=== PATIENT | male | born 1975 | race African-American/Black ===

== ENCOUNTER 2021-07-31 18:39 | Inpatient (IN) | payer MEDICAID ==
[~2021-07-31] VITALS: Ht 180.3 cm; Wt 98.4 kg
[2021-07-31] MEDS ORDERED: ONDANSETRON HCL 4MG/2ML INJ IV STA (20:03)
[2021-07-31] MEDS ORDERED: CLONIDINE 0.2MG TABLET PO ONE (20:15)
[2021-07-31] MEDS ORDERED: SODIUM CHLORIDE 0.9% 1,000 ML IV ONE (20:15)
[2021-07-31 20:29] LABS: BASOPHILS % 0.6 % (0.0-2.0); EOSINOPHILS % 2.6 % (0.0-5.0); HEMATOCRIT. 35.3 % (42.0-52.0); HEMOGLOBIN. 12.1 g/dL (14.0-18.0); LYMPHOCYTES % 23.1 % (20.0-50.0); MEAN CORPUSCULAR HEMOGLOBIN 31.1 pg (28.0-32.0); MEAN CORPUSCULAR VOLUME 90.8 fL (80.0-94.0); MONOCYTES % 7.1 % (2.0-8.0); NEUTROPHILS % 66.6 % (40.0-76.0); PLATELET 160 x1000/uL (130-400); RED BLOOD CELL COUNT 3.89 mill/uL (4.7-6.1); RED CELL DISTRIBUTION WIDTH 13.1 % (11.6-14.6)
[2021-07-31 20:36] LABS: CHLORIDE 111 mEq/L (98-107)
[2021-07-31] MEDS ORDERED: NITROGLYCERIN 50MG PREMIX 250 ML IV ONE (21:15)
[2021-07-31 21:52] LABS: CLARITY URINE CLEAR (CLEAR); COLOR URINE YELLOW (YELLOW); KETONES URINE NEGATIVE (NEGATIVE); LEUKOCYTE ESTERASE URINE NEGATIVE (NEGATIVE); NITRITE URINE NEGATIVE (NEGATIVE); OCCULT BLOOD URINE 2+ (NEGATIVE); PH URINE 6.5 (4.5-8.0); PROTEIN URINE 3+ (NEGATIVE); UROBILINOGEN URINE 0.2 E.U./dL (0.2-1.0)
[2021-07-31] MEDS ORDERED: ONDANSETRON HCL 4MG/2ML INJ IV PRN (23:15)
[2021-07-31] MEDS ORDERED: ACETAMINOPHEN 325MG TABLET PO PRN ×2 (23:15)
[2021-08-01] MEDS ORDERED: NITROGLYCERIN 50 MG PREMIX 250 ML IV PRN (04:45)
[2021-08-01 05:08] LABS: CHLORIDE 112 mEq/L (98-107)
[2021-08-01 05:10] LABS: BASOPHILS % 0.4 % (0.0-2.0); EOSINOPHILS % 4.1 % (0.0-5.0); HEMATOCRIT. 30.2 % (42.0-52.0); HEMOGLOBIN. 10.3 g/dL (14.0-18.0); LYMPHOCYTES % 31.6 % (20.0-50.0); MEAN CORPUSCULAR HEMOGLOBIN 30.5 pg (28.0-32.0); MEAN CORPUSCULAR VOLUME 89.4 fL (80.0-94.0); MEAN PLATELET VOLUME 7.9 fl (7.4-10.4); MONOCYTES % 7.9 % (2.0-8.0); PLATELET 160 x1000/uL (130-400); RED BLOOD CELL COUNT 3.38 mill/uL (4.7-6.1); RED CELL DISTRIBUTION WIDTH 12.9 % (11.6-14.6)
[2021-08-01 05:15] LABS: PHOSPHORUS 4.5 mg/dL (2.5-4.9)
[2021-08-01] MEDS ORDERED: NIFEDIPINE XL 30MG TAB PO SCH (08:00)
[2021-08-01] MEDS ORDERED: HYDRALAZINE 20MG/ML VIAL IV PRN (08:30)
[2021-08-01] MEDS ORDERED: METOPROLOL TARTRATE 25MG TABLET PO SCH (09:00)
[2021-08-01] MEDS: HYDRALAZINE HCL 25MG TABLET PO SCH ×3 (09:16→22:25)
[2021-08-01] MEDS: CARVEDILOL 12.5MG TABLET PO SCH ×2 (09:17→21:02)
[2021-08-01 21:00] VITALS: BP 202/110
[2021-08-01] MEDS: NIFEDIPINE XL 60MG TAB PO SCH (21:01)
[2021-08-01 21:11] VITALS: BP 202/110
[2021-08-01] MEDS ORDERED: PNEUMOCOCCAL 23-VAL P-SAC VAC 0.5 ML IM ONE (21:45)
[2021-08-02] VITALS: BP 154/83
[2021-08-02 04:00] VITALS: BP 161/96
[2021-08-02] MEDS: HYDRALAZINE HCL 25MG TABLET PO SCH ×2 (05:12→14:52)
[2021-08-02 07:09] LABS: BASOPHILS % 0.3 % (0.0-2.0); EOSINOPHILS % 2.5 % (0.0-5.0); HEMATOCRIT. 34.5 % (42.0-52.0); HEMOGLOBIN. 11.7 g/dL (14.0-18.0); LYMPHOCYTES % 19.3 % (20.0-50.0); MEAN CORPUSCULAR HEMOGLOBIN 30.7 pg (28.0-32.0); MEAN CORPUSCULAR VOLUME 90.2 fL (80.0-94.0); MEAN PLATELET VOLUME 8.1 fl (7.4-10.4); MONOCYTES % 9.5 % (2.0-8.0); NEUTROPHILS % 68.4 % (40.0-76.0); PLATELET 175 x1000/uL (130-400); RED BLOOD CELL COUNT 3.82 mill/uL (4.7-6.1); RED CELL DISTRIBUTION WIDTH 13.1 % (11.6-14.6)
[2021-08-02 07:21] LABS: CHLORIDE 107 mEq/L (98-107)
[2021-08-02 07:29] LABS: PHOSPHORUS 3.6 mg/dL (2.5-4.9)
[2021-08-02 07:32] LABS: CREATINE KINASE 214 IU/L (39-308)
[2021-08-02 08:00] VITALS: BP 170/87
[2021-08-02] MEDS: CARVEDILOL 12.5MG TABLET PO SCH (08:16)
[2021-08-02] MEDS: NIFEDIPINE XL 60MG TAB PO SCH (08:16)
[2021-08-02] MEDS ORDERED: ISOSORBIDE MONONITRATE 30MG TABLET SR 24HR PO SCH (09:15)
[2021-08-02 12:00] VITALS: BP 127/84
[2021-08-02] MEDS ORDERED: ISOS30TA91 PO (14:37)
[2021-08-02] MEDS ORDERED: COR12 PO (14:37)
[2021-08-02] MEDS ORDERED: NIFE-32 PO (14:37)
[2021-08-02] MEDS ORDERED: HYDR-4134 PO (14:37)
[2021-08-02 15:57] VITALS: BP 148/84
[2021-08-02 16:00] VITALS: BP 148/84
== END 2021-08-02 16:45 | disposition home or self-care (01) | DRG 194 ==
LOC: ER 18:39 → MICUSO 22:36 → SUPCPDRO 22:37 → 7EST 08-01 18:35
PROVIDERS: ADMIT Internal Medicine; ATTEND Internal Medicine
DX: I13.2 Hypertensive heart and chronic kidney disease with heart failure and with stage 5 chronic kidney disease, or end stage renal disease (principal); N17.9 Acute kidney failure, unspecified; E44.0 Moderate protein-calorie malnutrition; E11.22 Type 2 diabetes mellitus with diabetic chronic kidney disease; D64.9 Anemia, unspecified; F12.90 Cannabis use, unspecified, uncomplicated; I50.31 Acute diastolic (congestive) heart failure; I16.1 Hypertensive emergency; Z20.822 Contact with and (suspected) exposure to COVID-19; I50.33 Acute on chronic diastolic (congestive) heart failure; I44.7 Left bundle-branch block, unspecified; N18.5 Chronic kidney disease, stage 5; Z82.49 Family history of ischemic heart disease and other diseases of the circulatory system; Z68.30 Body mass index [BMI] 30.0-30.9, adult
CPT/HCPCS: 36415; 71045; 76770; 80053; 81003; 82550; 82962; 83036; 83735; 83880; 84100; 84443; 84484; 85025; 87426; 90732; 93005; 93306; 99291; J0360; J2405; J3490; J7030